=== PATIENT | female | born 1960 | race American Indian/Alaskan Native ===

== ENCOUNTER 2017-05-25 17:46 | Emergency (ER) | payer OTHER ==
--- NOTE | 2017-05-25 23:59 | Emergency Department Report ---
ED Fall HPI - General Chief Complaint: Fall Stated Complaint: FALL Time Seen by Provider: 05/25/17 23:49 Source: patient Mode of arrival: Ambulatory - History of Present Illness Initial Comments: 56-year-old female past medical history hypertension, GERD presents with complaint of right knee pain left middle finger abrasion and lower back pain status post mechanical fall. Patient states she was shopping at [facility] today and accidentally tripped over a basket that was on ground. He fell forward grazed the back of her left middle finger against a metal shelf. States that she fell onto her right knee and then rolled onto her lower back. Patient states pain is currently 6 out of 10. Denies any head or neck trauma denies any loss of consciousness. This was witnessed by bystanders. He was assisted by bystanders to stand up. Adamantly denies any direct head or neck trauma or loss of consciousness. Patient is awake alert and oriented 3 denies chest pain abdominal pain up or lower extremity paresthesias neck pain is fully lucid and able to provide detailed history. Patient is ambulatory without assistance. Last tetanus vaccine was over 10 years ago. Patient states she called her daughter after the fall and her daughter brought her to the hospital for evaluation. MD Complaint: fall -: This afternoon Fall From: standing Fall Witnessed: yes, by bystander Place Fall Occurred: other (store) Loss of Consciousness: none Prolonged Down Time?: no Symptoms Prior to Fall: none Location - Extremities: Right: Knee Severity scale (0 -10): 7 Quality: aching Context: tripped/slipped Associated Symptoms: denies - Related Data Home Medications Medication Instructions Recorded Confirmed Last Taken Lisinopril [Zestril] 10 mg PO QDAY 03/06/13 11/07/15 11/06/15 23:00 Metoprolol [Lopressor] 25 mg PO BID 03/06/13 11/07/15 11/06/15 21:00 Pravastatin [Pravachol] 40 mg PO QHS 03/06/13 11/07/15 11/06/15 21:00 Esomeprazole Magnesium [NexIUM] 40 mg PO DAILY 10/30/15 11/07/15 11/04/15 08:00 Previous Rx's Medication Instructions Recorded Last Taken Type Acetaminophen [Acetaminophen TAB] 500 mg PO Q6HR PRN #30 tablet 05/26/17 Unknown Rx Acetaminophen/Codeine [Tylenol 1 tab PO Q6H PRN #6 tab 05/26/17 Unknown Rx /Codeine # 3 tab] Neomycn/Bacitrc/Polymyx/Pramox 28 gm TP BID #1 oint...g. 05/26/17 Unknown Rx [Triple Antibioti-Pain Rlf Oint] Allergies Allergy/AdvReac Type Severity Reaction Status Date / Time iv contrast Allergy Rash Uncoded 10/30/15 13:48 ED Review of Systems ROS: Stated complaint: FALL Other details as noted in HPI Constitutional: denies: chills, fever Eyes: denies: eye pain, eye discharge, vision change ENT: denies: ear pain, throat pain Respiratory: denies: cough, shortness of breath, wheezing Cardiovascular: denies: chest pain, palpitations Endocrine: no symptoms reported Gastrointestinal: denies: abdominal pain, nausea, diarrhea Genitourinary: denies: urgency, dysuria, discharge Musculoskeletal: denies: back pain, joint swelling, arthralgia Skin: denies: rash, lesions Neurological: denies: headache, weakness, paresthesias Psychiatric: denies: anxiety, depression Hematological/Lymphatic: denies: easy bleeding, easy bruising ED Past Medical Hx - Past Medical History Previous Medical History?: Yes Hx Hypertension: Yes Hx GERD: Yes (TAKES NEXIUM) Hx Psychiatric Treatment: Yes (anxiety) Additional medical history: high cholesterol - Surgical History Past Surgical History?: Yes Additional Surgical History: hyst, tubal ligation - Social History Smoking Status: Never Smoker Substance Use Type: Alcohol, Prescribed - Medications Home Medications: Home Medications Medication Instructions Recorded Confirmed Last Taken Type Lisinopril [Zestril] 10 mg PO QDAY 03/06/13 11/07/15 11/06/15 23:00 History Metoprolol [Lopressor] 25 mg PO BID 03/06/13 11/07/15 11/06/15 21:00 History Pravastatin [Pravachol] 40 mg PO QHS 03/06/13 11/07/15 11/06/15 21:00 History Esomeprazole Magnesium [NexIUM] 40 mg PO DAILY 10/30/15 11/07/15 11/04/15 08:00 History Acetaminophen [Acetaminophen TAB] 500 mg PO Q6HR PRN #30 tablet 05/26/17 Unknown Rx Acetaminophen/Codeine [Tylenol 1 tab PO Q6H PRN #6 tab 05/26/17 Unknown Rx /Codeine # 3 tab] Neomycn/Bacitrc/Polymyx/Pramox 28 gm TP BID #1 oint...g. 05/26/17 Unknown Rx [Triple Antibioti-Pain Rlf Oint] ED Physical Exam - General Limitations: No Limitations General appearance: alert, in no apparent distress - Head Head exam: Present: atraumatic, normocephalic - Eye Eye exam: Present: normal appearance, PERRL, EOMI - ENT ENT exam: Present: mucous membranes moist - Neck Neck exam: Present: normal inspection, full ROM (neck flexion and extension fully intact) - Respiratory Respiratory exam: Present: normal lung sounds bilaterally. Absent: respiratory distress - Cardiovascular Cardiovascular Exam: Present: regular rate, normal rhythm. Absent: systolic murmur, diastolic murmur, rubs, gallop - GI/Abdominal GI/Abdominal exam: Present: soft (abdomen soft nontender nondistended 4 quadrants), normal bowel sounds - Extremities Exam Extremities exam: Present: normal inspection - Expanded Upper Extremity Exam Left Upper Arm exam: Present: normal inspection, full ROM Elbow exam: Present: normal inspection, full ROM Forearm Wrist exam: Present: normal inspection, full ROM Hand Wrist exam: Present: normal inspection, full ROM (range of motion DIPs MCPs and PIPs left hand fully intact) Neuro motor exam: Present: wrist extension intact, thumb opposition intact, thumb IP flexion intact, thumb adduction intact, fingers 2-5 abduction intact Neurosensory exam: Present: radial nerve intact, ulnar nerve intact, median nerve intact Vascular: Present: normal capillary refill (capillary refill less than one second in all fingers left hand), radial pulse (distal radial brachial and ulnar pulses intact on palpation), brachial pulse, ulnar pulse - Expanded Lower Extremity Exam Right Upper Leg exam: Present: normal inspection, full ROM Knee exam: Present: normal inspection, full ROM (right knee flexion and extension fully intact on exam) Lower Leg exam: Present: normal inspection, full ROM Ankle exam: Present: normal inspection, full ROM Foot/Toe exam: Present: normal inspection, full ROM Neuro vascular tendon exam: Present: no vascular compromise (distal capillary refill right foot intact, dorsalis pedis and posterior tibial pulses intact) - Back Exam Back exam: Present: normal inspection - Neurological Exam Neurological exam: Present: alert, oriented X3, CN II-XII intact - Expanded Neurological Exam Expanded Patient oriented to: Present: person, place, time Cranial nerves: EOM's Intact: Normal, Facial Sensation: Normal Cerebellar function: Finger to Nose: Normal, Heel to Narayanan: Normal, Romberg: Normal Sensory exam: Upper Extremity Light Touch: Abnormal Right, Lower Extremity Light Touch: Abnormal Right Motor strength exam: RUE: 5, LUE: 5, RLE: 5, LLE: 5 Best Eye Response (Malik): (4) open spontaneously Best Motor Response (Malik): (6) obeys commands Best Verbal Response ([place]): (5) oriented Malik Total: 15 - Psychiatric Psychiatric exam: Present: normal affect, normal mood - Skin Skin exam: Present: warm, dry, intact, normal color. Absent: rash ED Course Vital Signs 05/25/17 05/26/17 05/26/17 17:58 00:03 00:11 Temperature 98.1 F Pulse Rate 62 56 L Respiratory 18 18 Rate Blood Pressure 141/69 140/76 O2 Sat by Pulse 100 100 Oximetry ED Medical Decision Making - Medical Decision Making A/P: Musculoskeletal pain, right knee contusion, left finger abrasion 1-triple antibiotic ointment, abrasion is superficial no need for sutures, tetanus update today 2-short course Tylenol 3 when necessary. Pritesh wrap right knee, RICE therapy, patient is ambulatory 3-x-rays show no acute fractures, some degenerative changes and L-spine chronic 4-all primary care doctor Critical care attestation.: If time is entered above; I have spent that time in minutes in the direct care of this critically ill patient, excluding procedure time. ED Disposition Clinical Impression: Abrasion of finger of left hand Qualifiers: Encounter type: initial encounter Qualified Code(s): S60.419A - Abrasion of unspecified finger, initial encounter Contusion of right knee Qualifiers: Encounter type: initial encounter Qualified Code(s): S80.01XA - Contusion of right knee, initial encounter Lower back pain Qualifiers: Chronicity: acute Back pain laterality: bilateral Sciatica presence: without sciatica Qualified Code(s): M54.5 - Low back pain Fall on same level from slipping, tripping or stumbling Qualifiers: Encounter type: initial encounter Qualified Code(s): W01.0XXA - Fall on same level from slipping, tripping and stumbling without subsequent striking against object, initial encounter Disposition: DC- TO HOME OR SELFCARE Is pt being admited?: No Does the pt Need Aspirin: No Condition: Stable Instructions: Abrasion (ED), Knee Pain (ED), Contusion in Adults (ED), Back Pain (ED) Prescriptions: Acetaminophen [Acetaminophen TAB] 500 mg PO Q6HR PRN #30 tablet PRN Reason: Pain Acetaminophen/Codeine [Tylenol /Codeine # 3 tab] 1 tab PO Q6H PRN #6 tab PRN Reason: Pain Neomycn/Bacitrc/Polymyx/Pramox [Triple Antibioti-Pain Rlf Oint] 28 gm TP BID #1 oint...g. Referrals: [facility] [Other] - 3-5 Days Forms: Work/School Release Form(ED) Time of Disposition: 01:07
[2017-05-26 00:11] VITALS: BP 140/76
--- NOTE | 2017-05-26 00:50 | XRay Report ---
FINAL REPORT EXAM: XR SPINE LUMBOSACRAL 2-3V HISTORY: s/p fall lower back pain TECHNIQUE: Three views of the lumbar spine were obtained. FINDINGS: There is a grade 1 anterolisthesis of L3 over L4 with very mild narrowing of the disc. There is endplate spurring at this level. The remaining disc heights are well maintained. There is no evidence of acute fracture. The SI joints appear normal. There are multiple phleboliths along the floor pelvis. IMPRESSION: Grade 1 anterolisthesis of L3 over L4. No evidence of acute fracture.
--- NOTE | 2017-05-26 00:51 | XRay Report ---
FINAL REPORT EXAM: XR KNEE 3V RT HISTORY: s/p fall right knee pain TECHNIQUE: Three views of the right knee were submitted. FINDINGS: There is no evidence of fracture, joint effusion, or soft tissue swelling. 3 compartments are fairly well maintained. There localize calcification abutting the medial femoral condyle possibly related to remote ligamentous injury. IMPRESSION: No evidence of acute injury.
[2017-05-26] MEDS ORDERED: NORCO 5/325 PO ONE (00:55)
[2017-05-26] MEDS ORDERED: ZOFRAN ODT PO ONE (00:56)
[2017-05-26] MEDS ORDERED: BOOSTRIX IM ONE (00:56)
[2017-05-26] MEDS ORDERED: MOTRIN PO ONE (00:56)
== END 2017-05-26 01:13 | disposition home or self-care (01) ==
LOC: ED 17:46
DX: S80.01XA Contusion of right knee, initial encounter (principal); S60.413A Abrasion of left middle finger, initial encounter; M54.5 Low back pain; I10 Essential (primary) hypertension; K21.9 Gastro-esophageal reflux disease without esophagitis; F41.9 Anxiety disorder, unspecified; E78.00 Pure hypercholesterolemia, unspecified; Z88.8 Allergy status to other drugs, medicaments and biological substances
CPT/HCPCS: 72100; 90471; 90715; Q0162

== ENCOUNTER 2018-05-29 22:51 | Inpatient (IN) | payer OTHER ==
[2018-05-29] MEDS ORDERED: NACL 0.9% 1000 ML 1,000 ML IV ONE (23:55)
[2018-05-30 00:15] LABS: Basophils % (Auto) 0.6 % (0.0-1.8); Eosinophils # (Auto) 0.1 K/mm3 (0.0-0.4); Hematocrit 36.4 % (30.3-42.9); Hemoglobin 12.3 gm/dl (10.1-14.3); Lymphocytes # (Auto) 2.5 K/mm3 (1.2-5.4); Lymphocytes % (Auto) 45.1 % (13.4-35.0); Mean Corpuscular HGB Conc 34 % (30-34); Mean Corpuscular Volume 83 fl (79-97); Monocytes # (Auto) 0.5 K/mm3 (0.0-0.8); Monocytes % (Auto) 9.7 % (0.0-7.3); Platelet Count 288 K/mm3 (140-440)
[2018-05-30 00:34] LABS: Alanine Aminotransferase 19 units/L (7-56); Albumin 4.4 g/dL (3.9-5); BUN/Creatinine Ratio 20; Blood Urea Nitrogen 16 mg/dL (7-17); Calcium 9.4 mg/dL (8.4-10.2); Hemolysis Index 7
--- NOTE | 2018-05-30 01:28 | Emergency Department Report ---
ED Palpitations HPI - General Chief Complaint: Arrhythmia/Palpitations Stated Complaint: DIZZINESS/HEART PALPITATIONS Time Seen by Provider: 05/30/18 01:20 Source: patient Mode of arrival: Ambulatory Limitations: No Limitations - History of Present Illness Initial Comments: Patient is 57-year-old female presents emergency room for multiple complaints. Patient's first complaint is dizziness and heart palpitations been going on for 12 hours. Patient also complains of abdominal pain that is improving. Patient states the abdominal pain is a 5 out of 10. Patient states abdominal pain is in her lower abdomen and nonradiating. Patient states the pain is better for rest and worse with palpation and exertion. Patient states her dizziness is worse w ith exertion and better with rest. Patient is also complaining of chest pain that started one day ago. Patient states chest pain is improving in a 3 out of 10. Patient states that she is having heart palpitations and feels like her heart is beating very slow. Patient states the chest pain is better with rest and worse with exertion. Patient states she was seen in the urgent care today for abdominal pain and given Levsin which has improved her dominant pain. Denies shortness of breath. Patient denies headache. Patient denies blurry vision. Patient denies fever and chills. MD Complaint: palpitations, irregular heart beat - Related Data Home Medications Medication Instructions Recorded Confirmed Last Taken Lisinopril [Zestril] 10 mg PO QDAY 03/06/13 11/07/15 11/06/15 23:00 Metoprolol [Lopressor] 25 mg PO BID 03/06/13 11/07/15 11/06/15 21:00 Pravastatin [Pravachol] 40 mg PO QHS 03/06/13 11/07/15 11/06/15 21:00 Esomeprazole Magnesium [NexIUM] 40 mg PO DAILY 10/30/15 11/07/15 11/04/15 08:00 Previous Rx's Medication Instructions Recorded Last Taken Type Acetaminophen [Acetaminophen TAB] 500 mg PO Q6HR PRN #30 tablet 05/26/17 Unknown Rx Acetaminophen/Codeine [Tylenol 1 tab PO Q6H PRN #6 tab 05/26/17 Unknown Rx /Codeine # 3 tab] Neomycn/Bacitrc/Polymyx/Pramox 28 gm TP BID #1 oint...g. 05/26/17 Unknown Rx [Triple Antibioti-Pain Rlf Oint] Allergies Allergy/AdvReac Type Severity Reaction Status Date / Time iv contrast Allergy Rash Uncoded 10/30/15 13:48 ED Review of Systems ROS: Stated complaint: DIZZINESS/HEART PALPITATIONS Other details as noted in HPI Constitutional: denies: chills, fever Eyes: denies: eye pain, eye discharge, vision change ENT: denies: ear pain, throat pain Respiratory: denies: cough, shortness of breath, wheezing Cardiovascular: chest pain, palpitations Endocrine: no symptoms reported Gastrointestinal: abdominal pain. denies: nausea, diarrhea Genitourinary: denies: urgency, dysuria, discharge Musculoskeletal: denies: back pain, joint swelling, arthralgia Skin: denies: rash, lesions Neurological: vertigo. denies: headache, weakness, paresthesias Psychiatric: denies: anxiety, depression Hematological/Lymphatic: denies: easy bleeding, easy bruising ED Past Medical Hx - Past Medical History Previous Medical History?: Yes Hx Hypertension: Yes Hx GERD: Yes (TAKES NEXIUM) Hx Psychiatric Treatment: Yes (anxiety) Additional medical history: high cholesterol - Surgical History Past Surgical History?: Yes Additional Surgical History: hyst 2004, tubal ligation - Family History Family history: no significant - Social History Smoking Status: Never Smoker Substance Use Type: None - Medications Home Medications: Home Medications Medication Instructions Recorded Confirmed Last Taken Type Lisinopril [Zestril] 10 mg PO QDAY 03/06/13 11/07/15 11/06/15 23:00 History Metoprolol [Lopressor] 25 mg PO BID 03/06/13 11/07/15 11/06/15 21:00 History Pravastatin [Pravachol] 40 mg PO QHS 03/06/13 11/07/15 11/06/15 21:00 History Esomeprazole Magnesium [NexIUM] 40 mg PO DAILY 10/30/15 11/07/15 11/04/15 08:00 History Acetaminophen [Acetaminophen TAB] 500 mg PO Q6HR PRN #30 tablet 05/26/17 Unknown Rx Acetaminophen/Codeine [Tylenol 1 tab PO Q6H PRN #6 tab 05/26/17 Unknown Rx /Codeine # 3 tab] Neomycn/Bacitrc/Polymyx/Pramox 28 gm TP BID #1 oint...g. 05/26/17 Unknown Rx [Triple Antibioti-Pain Rlf Oint] ED Physical Exam - General Limitations: No Limitations General appearance: alert, in no apparent distress - Head Head exam: Present: atraumatic, normocephalic - Eye Eye exam: Present: normal appearance - ENT ENT exam: Present: mucous membranes moist - Neck Neck exam: Present: normal inspection - Respiratory Respiratory exam: Present: normal lung sounds bilaterally. Absent: respiratory distress - Cardiovascular Cardiovascular Exam: Present: regular rate, normal rhythm. Absent: systolic murmur, diastolic murmur, rubs, gallop - GI/Abdominal GI/Abdominal exam: Present: soft, tenderness (bilateral lower quadrant tenderness), normal bowel sounds - Extremities Exam Extremities exam: Present: normal inspection - Back Exam Back exam: Present: normal inspection - Neurological Exam Neurological exam: Present: alert, oriented X3 - Psychiatric Psychiatric exam: Present: normal affect, normal mood - Skin Skin exam: Present: warm, dry, intact, normal color. Absent: rash ED Course Vital Signs 05/29/18 05/29/18 05/30/18 22:55 23:45 01:19 Temperature 97.8 F 97.8 F Pulse Rate 51 L 46 L 46 L Respiratory 16 18 15 Rate Blood Pressure 188/65 188/65 O2 Sat by Pulse 100 100 100 Oximetry 05/30/18 05/30/18 05/30/18 01:30 02:54 03:00 Temperature Pulse Rate 48 L 56 L Respiratory 13 17 Rate Blood Pressure 132/70 132/70 143/71 O2 Sat by Pulse 100 98 99 Oximetry 05/30/18 05/30/18 05/30/18 03:30 04:00 04:30 Temperature Pulse Rate 54 L 53 L 55 L Respiratory 14 16 14 Rate Blood Pressure 132/70 126/67 126/67 O2 Sat by Pulse 99 98 99 Oximetry 05/30/18 05:00 Temperature Pulse Rate 53 L Respiratory 14 Rate Blood Pressure 126/67 O2 Sat by Pulse 98 Oximetry - Reevaluation(s) Reevaluation #1: Discussed all results with patient. Patient agrees to plan of care and adm ission. 05/30/18 04:08 - Consultations Consultation #1: Hospitalist consult for admission. Hospitalist to admit patient and assume care of patient. 05/30/18 04:08 ED Medical Decision Making - Lab Data Result diagrams: 05/30/18 00:03 05/30/18 00:03 - EKG Data -: EKG Interpreted by Me EKG shows normal: sinus rhythm, axis, intervals, QRS complexes, ST-T waves Rate: bradycardia - Radiology Data Radiology results: report reviewed FINAL REPORT PROCEDURE: CT HEAD/BRAIN WO CON TECHNIQUE: Computerized tomography of the head was performed without contrast material. HISTORY: dizzy COMPARISON: No prior studies are available for comparison. FINDINGS: Skull and scalp: Normal. Paranasal sinuses: Normal. Ventricles and subarachnoid spaces: Normal. Cerebrum: No evidence of hemorrhage, acute infarction or mass . Cerebellum and brainstem: No evidence of hemorrhage, acute infarction or mass. Vasculature: Normal. Comments: None. IMPRESSION: Normal Examination FINAL REPORT PROCEDURE: CT ABDOMEN PELVIS WO CON TECHNIQUE: Computerized axial tomography of the abdomen and pelvis was performed without intravenous contrast. This study is performed without intravascular contrast material and its sensitivity for abdominal and pelvic pathology, including neoplasms, inflammation, abscess, free fluid, thrombosis, arterial dissection and infarction, is reduced compared with a contrast enhanced study. HISTORY: lower abd pain COMPARISON: No prior studies are available for comparison. FINDINGS: Visualized lower thorax: No significant abnormality. Liver: Normal size and attenuation. There are hypodense lesions in the liver suggesting cysts. Spleen: Normal size and attenuation. Gallbladder and biliary system: Normal. Pancreas: Normal. Adrenals: Normal. Kidneys: There are no kidney stones. There is no hydronephrosis.. GI tract: There is no bowel obstruction, colitis or enteritis. The appendix is normal. Lymph nodes and mesentery: Normal. Vasculature: Normal. Bladder: Normal. Reproductive organs: There has been a hysterectomy.. Peritoneum: There is no ascites or free air, abscess or adenopathy.. Musculoskeletal structures: No significant abnormality. Other: None. IMPRESSION: There are hypodense lesions in the liver suggesting cysts. There are no kidney stones. There is no hydronephrosis.. There is no bowel obstruction, colitis or enteritis. The appendix is normal. There has been a hysterectomy.. There is no ascites or free air, abscess or adenopathy.. . Transcribed By: CO Dictated By: YEMI HURLEY MD Electronically Authenticated By: YEMI HURLEY MD Signed Date/Time: 05/30/18 0240 - Medical Decision Making Patient's 57-year-old woman presents for multiple complaints. Patient DENIED bradycardia. Patient's is cardiac related. Labs are negative. CT head negative. CT abdomen negative. CT of the head was done for her dizziness. CT abdomen was done for abdominal pain. - Differential Diagnosis abdominal pain. Chest pain. Bradycardia. Palpitations. Critical Care Time: Yes Critical care attestation.: If time is entered above; I have spent that time in minutes in the direct care of this critically ill patient, excluding procedure time. Critical Care Time: 55 minutes ED Disposition Clinical Impression: Dizziness, Bradycardia, Heart palpitations, Symptomatic bradycardia Chest pain Qualifiers: Chest pain type: unspecified Qualified Code(s): R07.9 - Chest pain, unspecified Abdominal pain Qualifiers: Abdominal location: lower abdomen, unspecified Qualified Code(s): R10.30 - Lower abdominal pain, unspecified Disposition: 09 OP ADMIT IP TO THIS HOSP Is pt being admited?: Yes Does the pt Need Aspirin: No Condition: Critical Time of Disposition: 04:07
--- NOTE | 2018-05-30 02:35 | Cat Scan Report ---
FINAL REPORT PROCEDURE: CT HEAD/BRAIN WO CON TECHNIQUE: Computerized tomography of the head was performed without contrast material. HISTORY: dizzy COMPARISON: No prior studies are available for comparison. FINDINGS: Skull and scalp: Normal. Paranasal sinuses: Normal. Ventricles and subarachnoid spaces: Normal. Cerebrum: No evidence of hemorrhage, acute infarction or mass . Cerebellum and brainstem: No evidence of hemorrhage, acute infarction or mass. Vasculature: Normal. Comments: None. IMPRESSION: Normal Examination
--- NOTE | 2018-05-30 02:40 | Cat Scan Report ---
FINAL REPORT PROCEDURE: CT ABDOMEN PELVIS WO CON TECHNIQUE: Computerized axial tomography of the abdomen and pelvis was performed without intravenous contrast. This study is performed without intravascular contrast material and its sensitivity for ab dominal and pelvic pathology, including neoplasms, inflammation, abscess, free fluid, thrombosis, art erial dissection and infarction, is reduced compared with a contrast enhanced study. HISTORY: lower abd pain COMPARISON: No prior studies are available for comparison. FINDINGS: Visualized lower thorax: No significant abnormality. Liver: Normal size and attenuation. There are hypodense lesions in the liver suggesting cysts. Spleen: Normal size and attenuation. Gallbladder and biliary system: Normal. Pancreas: Normal. Adrenals: Normal. Kidneys: There are no kidney stones. There is no hydronephrosis.. GI tract: There is no bowel obstruction, colitis or enteritis. The appendix is normal. Lymph nodes and mesentery: Normal. Vasculature: Normal. Bladder: Normal. Reproductive organs: There has been a hysterectomy.. Peritoneum: There is no ascites or free air, abscess or adenopathy.. Musculoskeletal structures: No significant abnormality. Other: None. IMPRESSION: There are hypodense lesions in the liver suggesting cysts. There are no kidney stones. There is no hydronephrosis.. There is no bowel obstruction, colitis or enteritis. The appendix is normal. There has been a hysterectomy.. There is no ascites or free air, abscess or adenopathy.. .
[2018-05-30 03:18] LABS: Creatine Kinase MB 2.5 ng/mL (0.0-4.0)
[2018-05-30 03:25] LABS: Bilirubin,Urine NEG (Negative); Blood,Urine NEG (Negative); Color,Urine Colorless (Yellow); Protein,Urine <15 mg/dL mg/dL (Negative); Urobilinogen,Urine < 2.0 mg/dL (<2.0); WBC,Urine < 1.0 /HPF (0.0-6.0)
[2018-05-30] MEDS ORDERED: TYLENOL PO PRN (05:31)
[2018-05-30] MEDS ORDERED: ZOFRAN IV PRN (05:31)
[2018-05-30] MEDS ORDERED: SODIUM CHLORIDE FLUSH SYRINGE 10 ML IV PRN (05:31)
[2018-05-30] MEDS ORDERED: REGLAN IV PRN (05:31)
--- NOTE | 2018-05-30 06:14 | History and Physical Report ---
<EREN MILES - Last Filed: 05/30/18 06:32> History of Present Illness Date of examination: 05/30/18 Date of admission: 05/30/2018 Chief complaint: Low heart rate, dizziness History of present illness: Pt is a 57 year old BF with PMHx of CAD, elevated heart rate, GERD, HTN who presents to the ER with c/o dizziness, started this morning, pt states that the dizziness continue throughout the day, she checked her heart rate in the evening which was "46", she decided to come to the ER for evaluation. Pt also c/o chest pain, with started in the afternoon with the dizziness, pt states that it is a mild, dull pain, located in the left subternal area, with no radiation. Pt reports palpitation and abdominal discomfort, she c/o nausea due to dizziness, and worsen dizziness with activity. Pt reports a similar chest pain, last stress test was about 3 year ago, she denies prior stent placement. She notes that she f/u with cardiology for her cardiac issues and for tachycardia for which she is taking beta [place], her beta [place] was recently changed from lopressor to a once a day regimen which she cannot recall the name. Pt denies any acute illness, she denies SOB. LOC, denies headache, denies visual changes, she is being admitted for further evaluation and treatment of her presenting symptoms. Past History Past Medical History: CAD, hypertension, hyperlipidemia Past Surgical History: No surgical history Social history: no significant social history, Lives alone Family history: no significant family history Medications and Allergies Allergies Allergy/AdvReac Type Severity Reaction Status Date / Time iv contrast Allergy Rash Uncoded 10/30/15 13:48 Home Medications Medication Instructions Recorded Confirmed Last Taken Type Lisinopril [Zestril] 10 mg PO QDAY 03/06/13 11/07/15 11/06/15 23:00 History Metoprolol [Lopressor] 25 mg PO BID 03/06/13 11/07/15 11/06/15 21:00 History Pravastatin [Pravachol] 40 mg PO QHS 03/06/13 11/07/15 11/06/15 21:00 History Esomeprazole Magnesium [NexIUM] 40 mg PO DAILY 10/30/15 11/07/15 11/04/15 08:00 History Acetaminophen [Acetaminophen TAB] 500 mg PO Q6HR PRN #30 tablet 05/26/17 Unknown Rx Acetaminophen/Codeine [Tylenol 1 tab PO Q6H PRN #6 tab 05/26/17 Unknown Rx /Codeine # 3 tab] Neomycn/Bacitrc/Polymyx/Pramox 28 gm TP BID #1 oint...g. 05/26/17 Unknown Rx [Triple Antibioti-Pain Rlf Oint] Active Meds: Active Medications Acetaminophen (Tylenol) 650 mg PO Q4H PRN PRN Reason: Pain MILD(1-3)/Fever >100.5/BOOGIE Metoclopramide HCl (Reglan) 10 mg IV Q6H PRN PRN Reason: Nausea And Vomiting Ondansetron HCl (Zofran) 4 mg IV Q8H PRN PRN Reason: Nausea And Vomiting Sodium Chloride (Sodium Chloride Flush Syringe 10 Ml) 10 ml IV BID JANNY Sodium Chloride (Sodium Chloride Flush Syringe 10 Ml) 10 ml IV PRN PRN PRN Reason: LINE FLUSH Review of Systems Cardiovascular: chest pain, palpitations Exam - Constitutional Vitals: Temp Pulse Resp BP Pulse Ox 97.8 F 53 L 14 126/67 98 05/29/18 23:45 05/30/18 05:00 05/30/18 05:00 05/30/18 05:00 05/30/18 05:00 General appearance: Present: no acute distress - EENT Eyes: Present: EOM intact ENT: hearing intact - Neck Neck: Present: normal ROM - Respiratory Respiratory effort: normal Respiratory: bilateral: CTA - Cardiovascular Heart rate: 57 Rhythm: regular Heart Sounds: Present: S1 & S2 - Extremities Extremities: no ischemia Peripheral Pulses: within normal limits - Abdominal General gastrointestinal: Present: non-tender, non-distended Female genitourinary: Present: deferred - Rectal Rectal Exam: deferred - Integumentary Integumentary: Present: warm, dry - Musculoskeletal Musculoskeletal: strength equal bilaterally - Psychiatric Psychiatric: appropriate mood/affect, cooperative - Neurologic Neurologic: moves all extremities Results - Labs CBC & Chem 7: 05/30/18 00:03 05/30/18 00:03 Labs: Laboratory Last Values WBC 5.6 K/mm3 (4.5-11.0) 05/30/18 00:03 RBC 4.40 M/mm3 (3.65-5.03) 05/30/18 00:03 Hgb 12.3 gm/dl (10.1-14.3) 05/30/18 00:03 Hct 36.4 % (30.3-42.9) 05/30/18 00:03 MCV 83 fl (79-97) 05/30/18 00:03 MCH 28 pg (28-32) 05/30/18 00:03 MCHC 34 % (30-34) 05/30/18 00:03 RDW 14.0 % (13.2-15.2) 05/30/18 00:03 Plt Count 288 K/mm3 (140-440) 05/30/18 00:03 Lymph % (Auto) 45.1 % (13.4-35.0) H 05/30/18 00:03 Gosper % (Auto) 9.7 % (0.0-7.3) H 05/30/18 00:03 Eos % (Auto) 1.0 % (0.0-4.3) 05/30/18 00:03 Baso % (Auto) 0.6 % (0.0-1.8) 05/30/18 00:03 Lymph # 2.5 K/mm3 (1.2-5.4) 05/30/18 00:03 Gosper # 0.5 K/mm3 (0.0-0.8) 05/30/18 00:03 Eos # 0.1 K/mm3 (0.0-0.4) 05/30/18 00:03 Baso # 0.0 K/mm3 (0.0-0.1) 05/30/18 00:03 Seg Neutrophils % 43.6 % (40.0-70.0) 05/30/18 00:03 Seg Neutrophils # 2.4 K/mm3 (1.8-7.7) 05/30/18 00:03 Sodium 141 mmol/L (137-145) 05/30/18 00:03 Potassium 4.1 mmol/L (3.6-5.0) 05/30/18 00:03 Chloride 100.9 mmol/L (98-107) 05/30/18 00:03 Carbon Dioxide 27 mmol/L (22-30) 05/30/18 00:03 Anion Gap 17 mmol/L 05/30/18 00:03 BUN 16 mg/dL (7-17) 05/30/18 00:03 Creatinine 0.8 mg/dL (0.7-1.2) 05/30/18 00:03 Estimated GFR > 60 ml/min 05/30/18 00:03 BUN/Creatinine Ratio 20 % 05/30/18 00:03 Glucose 106 mg/dL (65-100) H 05/30/18 00:03 Calcium 9.4 mg/dL (8.4-10.2) 05/30/18 00:03 Total Bilirubin 0.70 mg/dL (0.1-1.2) 05/30/18 00:03 AST 24 units/L (5-40) 05/30/18 00:03 ALT 19 units/L (7-56) 05/30/18 00:03 Alkaline Phosphatase 95 units/L (35-129) 05/30/18 00:03 Total Creatine Kinase 284 units/L (30-135) H 05/30/18 02:36 CK-MB (CK-2) 2.5 ng/mL (0.0-4.0) 05/30/18 02:36 CK-MB (CK-2) Rel Index 0.8 (0-4) 05/30/18 02:36 Troponin T < 0.010 ng/mL (0.00-0.029) 05/30/18 02:36 Total Protein 7.2 g/dL (6.3-8.2) 05/30/18 00:03 Albumin 4.4 g/dL (3.9-5) 05/30/18 00:03 Albumin/Globulin Ratio 1.6 % 05/30/18 00:03 Urine Color Colorless (Yellow) 05/30/18 03:08 Urine Turbidity Clear (Clear) 05/30/18 03:08 Urine pH 6.0 (5.0-7.0) 05/30/18 03:08 Ur Specific [place] 1.002 (1.003-1.030) L 05/30/18 03:08 Urine Protein <15 mg/dl mg/dL (Negative) 05/30/18 03:08 Urine Glucose (UA) Neg mg/dL (Negative) 05/30/18 03:08 Urine Ketones Neg mg/dL (Negative) 05/30/18 03:08 Urine Blood Neg (Negative) 05/30/18 03:08 Urine Nitrite Neg (Negative) 05/30/18 03:08 Urine Bilirubin Neg (Negative) 05/30/18 03:08 Urine Urobilinogen < 2.0 mg/dL (<2.0) 05/30/18 03:08 Ur Leukocyte Esterase Neg (Negative) 05/30/18 03:08 Urine WBC (Auto) < 1.0 /HPF (0.0-6.0) 05/30/18 03:08 Urine RBC (Auto) 6.0 /HPF (0.0-6.0) 05/30/18 03:08 U Epithel Cells (Auto) < 1.0 /HPF (0-13.0) 05/30/18 03:08 Assessment and Plan Assessment and plan: 1. Symptomatic Bradycardia (on Beta [place]) 2. Dizziness (likely due to bradycardia) 3. H/o Elevated heart rate 4. Chest pain r/o ACS 5. Hyperbilirubenia 6. Hypertension 7. GERD Plan: Admit to [facility] for symptomatic bradycardia Consult cardiology for evaluation Orthostatic BP q8hr and with activity Continue CE Q6hr x2 more Repeat EKG with chest pain Hold all beta [place] Resume other home meds Stress test today Further plan per hospital course Pt's condition and plan of care discussed with Dr Carney Advance Directives: Yes VTE prophylaxis?: Mechanical Plan of care discussed with patient/family: Yes <NICHO CARNEY E - Last Filed: 05/30/18 07:07> Medications and Allergies Active Meds: Active Medications Acetaminophen (Tylenol) 650 mg PO Q4H PRN PRN Reason: Pain MILD(1-3)/Fever >100.5/BOOGIE Metoclopramide HCl (Reglan) 10 mg IV Q6H PRN PRN Reason: Nausea And Vomiting Ondansetron HCl (Zofran) 4 mg IV Q8H PRN PRN Reason: Nausea And Vomiting Sodium Chloride (Sodium Chloride Flush Syringe 10 Ml) 10 ml IV BID JANNY Sodium Chloride (Sodium Chloride Flush Syringe 10 Ml) 10 ml IV PRN PRN PRN Reason: LINE FLUSH Exam - Constitutional Vitals: Temp Pulse Resp BP Pulse Ox 97.8 F 53 L 14 126/67 98 05/29/18 23:45 05/30/18 05:00 05/30/18 05:00 05/30/18 05:00 05/30/18 05:00 Results - Labs CBC & Chem 7: 05/30/18 00:03 05/30/18 00:03 Labs: Laboratory Last Values WBC 5.6 K/mm3 (4.5-11.0) 05/30/18 00:03 RBC 4.40 M/mm3 (3.65-5.03) 05/30/18 00:03 Hgb 12.3 gm/dl (10.1-14.3) 05/30/18 00:03 Hct 36.4 % (30.3-42.9) 05/30/18 00:03 MCV 83 fl (79-97) 05/30/18 00:03 MCH 28 pg (28-32) 05/30/18 00:03 MCHC 34 % (30-34) 05/30/18 00:03 RDW 14.0 % (13.2-15.2) 05/30/18 00:03 Plt Count 288 K/mm3 (140-440) 05/30/18 00:03 Lymph % (Auto) 45.1 % (13.4-35.0) H 05/30/18 00:03 [place] % (Auto) 9.7 % (0.0-7.3) H 05/30/18 00:03 Eos % (Auto) 1.0 % (0.0-4.3) 05/30/18 00:03 Baso % (Auto) 0.6 % (0.0-1.8) 05/30/18 00:03 Lymph # 2.5 K/mm3 (1.2-5.4) 05/30/18 00:03 Gos[place] # 0.5 K/mm3 (0.0-0.8) 05/30/18 00:03 Eos # 0.1 K/mm3 (0.0-0.4) 05/30/18 00:03 Baso # 0.0 K/mm3 (0.0-0.1) 05/30/18 00:03 Seg Neutrophils % 43.6 % (40.0-70.0) 05/30/18 00:03 Seg Neutrophils # 2.4 K/mm3 (1.8-7.7) 05/30/18 00:03 Sodium 141 mmol/L (137-145) 05/30/18 00:03 Potassium 4.1 mmol/L (3.6-5.0) 05/30/18 00:03 Chloride 100.9 mmol/L (98-107) 05/30/18 00:03 Carbon Dioxide 27 mmol/L (22-30) 05/30/18 00:03 Anion Gap 17 mmol/L 05/30/18 00:03 BUN 16 mg/dL (7-17) 05/30/18 00:03 Creatinine 0.8 mg/dL (0.7-1.2) 05/30/18 00:03 Estimated GFR > 60 ml/min 05/30/18 00:03 BUN/Creatinine Ratio 20 % 05/30/18 00:03 Glucose 106 mg/dL (65-100) H 05/30/18 00:03 Calcium 9.4 mg/dL (8.4-10.2) 05/30/18 00:03 Total Bilirubin 0.70 mg/dL (0.1-1.2) 05/30/18 00:03 AST 24 units/L (5-40) 05/30/18 00:03 ALT 19 units/L (7-56) 05/30/18 00:03 Alkaline Phosphatase 95 units/L (35-129) 05/30/18 00:03 Total Creatine Kinase 252 units/L (30-135) H 05/30/18 06:07 CK-MB (CK-2) 2.0 ng/mL (0.0-4.0) 05/30/18 06:07 CK-MB (CK-2) Rel Index 0.7 (0-4) 05/30/18 06:07 Troponin T < 0.010 ng/mL (0.00-0.029) 05/30/18 06:07 Total Protein 7.2 g/dL (6.3-8.2) 05/30/18 00:03 Albumin 4.4 g/dL (3.9-5) 05/30/18 00:03 Albumin/Globulin Ratio 1.6 % 05/30/18 00:03 Urine Color Colorless (Yellow) 05/30/18 03:08 Urine Turbidity Clear (Clear) 05/30/18 03:08 Urine pH 6.0 (5.0-7.0) 05/30/18 03:08 Ur Specific [place] 1.002 (1.003-1.030) L 05/30/18 03:08 Urine Protein <15 mg/dl mg/dL (Negative) 05/30/18 03:08 Urine Glucose (UA) Neg mg/dL (Negative) 05/30/18 03:08 Urine Ketones Neg mg/dL (Negative) 05/30/18 03:08 Urine Blood Neg (Negative) 05/30/18 03:08 Urine Nitrite Neg (Negative) 05/30/18 03:08 Urine Bilirubin Neg (Negative) 05/30/18 03:08 Urine Urobilinogen < 2.0 mg/dL (<2.0) 05/30/18 03:08 Ur Leukocyte Esterase Neg (Negative) 05/30/18 03:08 Urine WBC (Auto) < 1.0 /HPF (0.0-6.0) 05/30/18 03:08 Urine RBC (Auto) 6.0 /HPF (0.0-6.0) 05/30/18 03:08 U Epithel Cells (Auto) < 1.0 /HPF (0-13.0) 05/30/18 03:08 Assessment and Plan Assessment and plan: 57-year-old woman with a history of hypertension, hyperlipidemia comes emergency room complaining of dizziness. She has been seen her striper who has been adjusting her antihypertensive. She was on Lopressor 25 twice a day, this was adjusted to once a day secondary to bradycardia. Her metoprolol was then switch to sounds like Bystolic recently. Patient said that yesterday she became more dizzy, her heart rate was in 40s. She also complained of chest pain in the epigastric area. Agree with plan as discussed above, in addition to obtain a stress test, consult cardiology
[2018-05-30] MEDS ORDERED: TYLENOL #3 PO PRN (07:03)
[2018-05-30 07:07] VITALS: BP 136/71
[2018-05-30] MEDS ORDERED: LEXISCAN IV ONE ×2 (08:24→08:26)
[2018-05-30] MEDS ORDERED: PROTONIX PO SCH (10:00)
[2018-05-30] MEDS ORDERED: NON-FORMULARY (Esomeprazole Magnesium [Nexium] 40 MG) PO SCH (10:00)
[2018-05-30] MEDS ORDERED: SODIUM CHLORIDE FLUSH SYRINGE 10 ML IV SCH (10:00)
[2018-05-30] MEDS: ZESTRIL PO SCH ×2 (10:42→10:44)
--- NOTE | 2018-05-30 11:33 | Event Note ---
Date: 05/30/18 Atypical chest pain ECG showing SB with non-specific T wave abnormalities MPI - no evidence of ischemia, normal LVEF Dizziness Palpitations No further inpatient cardiac work-up is needed Discontinue and do not resume metoprolol on discharge due to underlying sinus bradycardia May go home with outpatient follow-up
--- NOTE | 2018-05-30 11:53 | Discharge Summary ---
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 Pt also c/o chest pain, with started in the afternoon with the dizziness, pt states that it is a mild, dull pain, located in the left subternal area, with no radiation. Pt reports palpitation and abdominal discomfort, she c/o nausea due to dizziness, and worsen dizziness with activity. Pt reports a similar chest pain, last stress test was about 3 year ago, she denies prior stent placement. She notes that she f/u with cardiology for her cardiac issues and for tachycardia for which she is taking beta [place], her beta [place] was recently changed from lopressor to a once a day regimen which she cannot recall the name. Pt denies any acute illness, she denies SOB. LOC, denies headache, denies visual changes, she is being admitted for further evaluation and treatment of her presenting symptoms. The patient was evaluated by cardiology in consultation who felt that chest pain was atypical. EKG revealed nonspecific T-wave abnormalities. The patient underwent MPI which showed no evidence of ischemia and a normal LVEF. Cardiology felt that no further workup was needed. Patient is to discharge home and to discontinue metoprolol due to underlying sinus bradycardia. Etiology of CP likely GERD. Dedicated discharge time 32 minutes. Disposition: TO HOME OR SELFCARE Time spent for discharge: 32 - Discharge Diagnoses (1) Bradycardia Status: Acute (2) Chest pain Status: Acute Qualifiers: Chest pain type: unspecified Qualified Code(s): R07.9 - Chest pain, unspecified (3) Dizziness Status: Acute (4) Heart palpitations Status: Acute (5) Symptomatic bradycardia Status: Acute Core Measure Documentation - Palliative Care Palliative Care/ Comfort Measures: Not Applicable - Core Measures Any of the following diagnoses?: none Exam - Constitutional Vitals: Temp Pulse Resp BP Pulse Ox 98.1 F 92 H 18 136/71 100 05/30/18 08:50 05/30/18 10:44 05/30/18 10:00 05/30/18 10:44 05/30/18 10:00 General appearance: Present: no acute distress, well-nourished - EENT Eyes: Present: PERRL ENT: hearing intact, clear oral mucosa - Neck Neck: Present: supple, normal ROM - Respiratory Respiratory effort: normal Respiratory: bilateral: CTA - Cardiovascular Heart Sounds: Present: S1 & S2. Absent: rub, click - Extremities Extremities: pulses symmetrical, No edema Peripheral Pulses: within normal limits - Abdominal General gastrointestinal: Present: soft, non-tender, non-distended, normal bowel sounds Female genitourinary: Present: normal - Integumentary Integumentary: Present: clear, warm, dry - Musculoskeletal Musculoskeletal: gait normal, strength equal bilaterally - Psychiatric Psychiatric: appropriate mood/affect, intact judgment & insight - Neurologic Neurologic: CNII-XII intact, moves all extremities Plan Activity: no restrictions Weight Bearing Status: Full Weight Bearing Diet: regular Additional Instructions: D/C home med metoprolol Follow up with: PRIMARY CARE, [Primary Care Provider] - 7 Days
--- NOTE | 2018-05-30 12:30 | Query- Chest Pain ---
Mihir Pitt Date:___05/30/2018 Shock Absorption Floor Layer/CDS:___Kat Phone#:___[phone] Exercise your independent professional judgment when responding to query. Questions asked do not imply a particular answer is desired or expected. We greatly appreciate your clarification on this issue. Clinical Documentation States: Pt is a 57 year old BF with PMHx of CAD, elevated heart rate, GERD, HTN who presents to the ER with c/o dizziness, started this morning. Pt also c/o chest pain, with started in the afternoon with the dizziness, pt states that it is a mild, dull pain, located in the left substernal area, with no radiation. - Discharge Diagnoses (2) Chest pain Status: Acute Qualifiers: Chest pain type: unspecified Qualified Code(s): R07.9 - Chest pain, unspecified Please document the etiology of Chest Pain: [ ] Myocardial Infarction [ ] Pneumonia [ ] Mediastinitis [ ] Costochondritis [ ] Pulmonary Embolism [ ] Coronary Artery Disease [ x] GERD [ ] Other: [ ] Comment/Explanation: Present on Admission: [ x] Yes (Y) [ ] Clinically undeterminable (W) [ ] No(N) Please document response in your Progress Notes and/or Discharge Summary and indicate if the condition was present on admission. RICKEY
--- NOTE | 2018-05-30 13:02 | Treadmill Report ---
STRESS TEST ORDERING PHYSICIAN: Melecio Sparrow MD INDICATION: Dizziness, palpitation and chest pain. FINDINGS: There is no scintigraphic evidence of myocardial ischemia. The left ventricle is normal in size. The left ventricular ejection fraction is measured at 65%. There is normal wall motion and wall thickening. CONCLUSION: No perfusion scan. JOB# [id number] BARBRA/LAURIE
[2018-05-30] MEDS ORDERED: PRAVACHOL PO SCH (22:00)
== END 2018-05-30 15:24 | disposition home or self-care (01) | DRG 392 ==
LOC: ED 22:51 → 4A 05-30 05:40
PROVIDERS: ADMIT Internal Medicine; ATTEND Hospitalist
DX: K21.9 Gastro-esophageal reflux disease without esophagitis (principal); R00.1 Bradycardia, unspecified; R00.2 Palpitations; I10 Essential (primary) hypertension; I25.10 Atherosclerotic heart disease of native coronary artery without angina pectoris; Z60.2 Problems related to living alone; E80.6 Other disorders of bilirubin metabolism; F41.9 Anxiety disorder, unspecified; E78.00 Pure hypercholesterolemia, unspecified; Z91.041 Radiographic dye allergy status; Z90.710 Acquired absence of both cervix and uterus; Z98.51 Tubal ligation status
CPT/HCPCS: 36415; 70450; 74176; 78452; 80053; 81001; 82550; 82553; 84484; 85025; 93005; 93010; 93017; G0378; A9502; J2785

== ENCOUNTER 2018-12-09 16:55 | Emergency (ER) | payer OTHER ==
[2018-12-09 18:17] VITALS: BP 174/91
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
[2018-12-09] MEDS ORDERED: IBUPROFEN PO ONE (19:32)
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
== END 2018-12-09 19:59 | disposition home or self-care (01) ==
LOC: ED 16:55
DX: M54.2 Cervicalgia (principal); M54.9 Dorsalgia, unspecified; R07.9 Chest pain, unspecified; I10 Essential (primary) hypertension; K21.0 Gastro-esophageal reflux disease with esophagitis; F41.9 Anxiety disorder, unspecified; E78.00 Pure hypercholesterolemia, unspecified; Z98.51 Tubal ligation status; Z90.710 Acquired absence of both cervix and uterus; Z79.899 Other long term (current) drug therapy; Z91.041 Radiographic dye allergy status
CPT/HCPCS: 71046; 72040; 72070; 93005; 93010; 99283

== ENCOUNTER 2021-12-10 09:58 | Emergency (ER) | payer OTHER ==
[2021-12-10] MEDS ORDERED: dexAMETHasone 4 MG/ML VIAL IM ONE (12:34)
[2021-12-10] MEDS ORDERED: KETOROLAC 60 MG/2 ML INJ IM ONE (12:35)
--- NOTE | 2021-12-10 12:59 | Emergency Department Report ---
ED General Adult HPI - General Chief complaint: Back Pain/Injury Stated complaint: BACK PAIN Time Seen by Provider: 12/10/21 12:31 Source: patient Mode of arrival: Ambulatory Limitations: No Limitations - History of Present Illness Initial comments: Pt reports lower back pain radiating down both legs x1 wk. Pt was seen by pcp and prescribed a muscle relaxer with little relief. -: Gradual, days(s) (7) Location: back Radiation: non-radiation Severity scale (0 -10): 6 Quality: aching Consistency: constant Improves with: none Worsens with: none Associated Symptoms: denies: denies other symptoms, confusion, chest pain, cough - Related Data Home Medications Medication Instructions Recorded Confirmed Last Taken Pravastatin [Pravachol] 40 mg PO QHS 03/06/13 05/30/18 11/06/15 21:00 lisinopriL [Zestril TAB] 10 mg PO QDAY 03/06/13 05/30/18 11/06/15 23:00 Esomeprazole Magnesium [NexIUM] 40 mg PO DAILY 10/30/15 05/30/18 11/04/15 08:00 Previous Rx's Medication Instructions Recorded Last Taken Type Cyclobenzaprine [Flexeril] 10 mg PO TID PRN #10 tablet 12/09/18 Unknown Rx predniSONE [Deltasone] 20 mg PO DAILY #5 tablet 12/09/18 Unknown Rx Allergies Allergy/AdvReac Type Severity Reaction Status Date / Time iv contrast Allergy Rash Uncoded 10/30/15 13:48 ED Review of Systems ROS: Stated complaint: BACK PAIN Other details as noted in HPI Constitutional: denies: chills, fever Eyes: denies: eye pain, eye discharge, vision change ENT: denies: ear pain, throat pain Respiratory: denies: cough, shortness of breath, wheezing Cardiovascular: denies: chest pain, palpitations Endocrine: no symptoms reported Gastrointestinal: denies: abdominal pain, nausea, diarrhea Genitourinary: denies: urgency, dysuria, discharge Musculoskeletal: denies: back pain, joint swelling, arthralgia Skin: denies: rash, lesions Neurological: denies: headache, weakness, paresthesias Psychiatric: denies: anxiety, depression Hematological/Lymphatic: denies: easy bleeding, easy bruising ED Past Medical Hx - Past Medical History Hx Hypertension: Yes Hx GERD: Yes (TAKES NEXIUM) Hx Psychiatric Treatment: Yes (anxiety) Additional medical history: high cholesterol - Surgical History Additional Surgical History: hyst 2004, tubal ligation - Social History Smoking Status: Never Smoker - Medications Home Medications: Home Medications Medication Instructions Recorded Confirmed Last Taken Type Pravastatin [Pravachol] 40 mg PO QHS 03/06/13 05/30/18 11/06/15 21:00 History lisinopriL [Zestril TAB] 10 mg PO QDAY 03/06/13 05/30/18 11/06/15 23:00 History Esomeprazole Magnesium [NexIUM] 40 mg PO DAILY 10/30/15 05/30/18 11/04/15 08:00 History Cyclobenzaprine [Flexeril] 10 mg PO TID PRN #10 tablet 12/09/18 Unknown Rx predniSONE [Deltasone] 20 mg PO DAILY #5 tablet 12/09/18 Unknown Rx ED Physical Exam - General Limitations: No Limitations General appearance: alert, in no apparent distress - Head Head exam: Present: atraumatic, normocephalic - Eye Eye exam: Present: normal appearance - ENT ENT exam: Present: mucous membranes moist - Neck Neck exam: Present: normal inspection - Respiratory Respiratory exam: Present: normal lung sounds bilaterally. Absent: respiratory distress - Cardiovascular Cardiovascular Exam: Present: regular rate, normal rhythm. Absent: systolic murmur, diastolic murmur, rubs, gallop - GI/Abdominal GI/Abdominal exam: Present: soft, normal bowel sounds - Extremities Exam Extremities exam: Present: normal inspection - Back Exam Back exam: Present: tenderness, muscle spasm - Neurological Exam Neurological exam: Present: alert, oriented X3 - Psychiatric Psychiatric exam: Present: normal affect, normal mood - Skin Skin exam: Present: warm, dry, intact, normal color. Absent: rash ED Course Vital Signs 12/10/21 10:10 Temperature 98.9 F Pulse Rate 70 Respiratory 14 Rate Blood Pressure 149/87 O2 Sat by Pulse 99 Oximetry Critical care attestation.: If time is entered above; I have spent that time in minutes in the direct care of this critically ill patient, excluding procedure time. ED Disposition Clinical Impression: Back pain Disposition: HOME / SELF CARE / HOMELESS Is pt being admited?: No Does the pt Need Aspirin: No Condition: Stable Instructions: Radicular Pain
[2021-12-10 14:00] VITALS: BP 124/68
== END 2021-12-10 13:59 | disposition home or self-care (01) ==
LOC: ED 09:58
DX: M54.50 Low back pain, unspecified (principal)
CPT/HCPCS: 96372; 99282; J1100; J1885